=== PATIENT | female | born 1965 | race Native Hawaiian/Other Pacific Islander ===

== ENCOUNTER 2018-05-10 20:18 | Emergency (ER) | payer OTHER ==
[~2018-05-10] VITALS: Ht 160 cm; Wt 49.4 kg
[2018-05-10 21:22] LABS: PLATELET COUNT 264 K/uL (152-353)
[2018-05-10 21:26] LABS: POTASSIUM 3.9 mmol/L (3.6-5.2)
[2018-05-11 02:07] VITALS: BP 133/85; TEMP 98.7
== END 2018-05-11 02:07 | disposition home or self-care (01) ==
LOC: ED 20:18
DX: K29.70 Gastritis, unspecified, without bleeding (principal); K59.00 Constipation, unspecified
CPT/HCPCS: 36415; 80053; 81000; 82150; 83690; 85027; 96365; 96374; 99284; J2405

== ENCOUNTER 2018-12-02 12:51 | Outpatient (CLI) | payer OTHER | END 2018-12-02 19:54 | disposition home or self-care (01) | LOC: MAMMO 12:51 | DX: R05 Cough (principal); R06.02 Shortness of breath; Z12.31 Encounter for screening mammogram for malignant neoplasm of breast; N63.0 Unspecified lump in unspecified breast ==